=== PATIENT | female | born 1965 | race African-American/Black ===

== ENCOUNTER 2022-10-26 01:18 | Emergency (ER) | payer MEDICAID ==
[~2022-10-26] VITALS: Ht 165.1 cm; Wt 87.0 kg
[~2022-10-26 01:18] MED LIST: AMLO5TAB4 MT; ASPI-1497 MT; INSLIS SUBCUT; MAGN400C MT; METF-874 MT; METO-539 MT; VITAMIN D
[2022-10-26 01:24] VITALS: BP 121/58
== END 2022-10-26 01:53 | disposition left against medical advice (07) ==
LOC: ER 01:18
DX: R53.1 Weakness (principal); E11.9 Type 2 diabetes mellitus without complications; E78.00 Pure hypercholesterolemia, unspecified; I10 Essential (primary) hypertension; Z79.899 Other long term (current) drug therapy; Z88.5 Allergy status to narcotic agent
CPT/HCPCS: 99283